=== PATIENT | male | born 1960 | race Caucasian/White ===

== ENCOUNTER 2018-05-02 13:08 | Emergency (ER) | payer OTHER ==
[~2018-05-02] VITALS: Ht 172.7 cm; Wt 91.7 kg
[2018-05-02] MEDS ORDERED: ACETAMINOPHEN 500 MG TABLET PO ONE (14:00)
--- NOTE | 2018-05-02 14:25 | PHYS DOC ---
Past History Past Medical History: Depression, Diabetes, High Cholesterol, Hypertension Past Surgical History: Other Smoking: Non-smoker Alcohol Use: None Drug Use: None Adult General Chief Complaint Chief Complaint: BACK PAIN OR INJURY HPI HPI Patient is a 57 year old male who presents with complaining of back pain. Patient states he was lifting a recliner chair at work to put it in a dump truck and suddenly felt pain in his upper back while he had the chair above of his head. Patient complaining of constant pain in upper back that getting worse with turning his back without radiation of pain, focal neuro deficit, fever and chills, chest pain and shortness of breath. Patient rated his pain 8/10. Review of Systems Review of Systems Constitutional: Denies fever or chills [] Eyes: Denies change in visual acuity, redness, or eye pain [] HENT: Denies nasal congestion or sore throat [] Respiratory: Denies cough or shortness of breath [] Cardiovascular: No additional information not addressed in HPI [] GI: Denies abdominal pain, nausea, vomiting, bloody stools or diarrhea [] : Denies dysuria or hematuria [] Musculoskeletal: Reports back pain, denies joint pain Integument: Denies rash or skin lesions [] Neurologic: Denies headache, focal weakness or sensory changes [] Endocrine: Denies polyuria or polydipsia [] All other systems were reviewed and found to be within normal limits, except as documented in this note. Current Medications Current Medications Current Medications Medications (Trade) Dose Ordered Sig/[facility] Start Time Stop Time Status Last Admin Dose Admin Acetaminophen (Tylenol) 1,000 mg 1X ONCE 05/02/18 14:00 05/02/18 14:01 DC 05/02/18 14:02 1,000 MG Allergies Allergies Allergies Coded Allergies Type Severity Reaction Last Updated Verified No Known Drug Allergies 05/02/18 No Physical Exam Physical Exam Constitutional: Well developed, well nourished, mild distress, non-toxic appearance. [] HENT: Normocephalic, atraumatic Eyes: PERRLA, EOMI, conjunctiva normal, no discharge. [] Neck: Normal range of motion, no tenderness, supple, no stridor. [] Cardiovascular:Heart rate regular rhythm, no murmur [] Lungs & Thorax: Bilateral breath sounds clear to auscultation [] Abdomen: Bowel sounds normal, soft, no tenderness, no masses, no pulsatile masses. [] Skin: Warm, dry, no erythema, no rash. [] Back: No sign of injury or midline tenderness, painful range of motion of bilateral thoracic area, No tenderness, no CVA tenderness. [] Extremities: No tenderness, no cyanosis, no clubbing, ROM intact, no edema. [] Neurologic: Alert and oriented X 3, normal motor function, normal sensory function, no focal deficits noted. [] Psychologic: Affect normal, judgement normal, mood normal. [] Current Patient Data Vital Signs Vital Signs Date Time Temp Pulse Resp B/P (MAP) Pulse Ox O2 Delivery O2 Flow Rate FiO2 05/02/18 13:10 97.9 76 20 97 Room Air EKG EKG [] Radiology/Procedures Radiology/Procedures [address] [address] IMAGING REPORT Signed PATIENT: MIHAELA BROOKS ACCOUNT: [id number] : 1960 LOCATION: ER AGE: 57 SEX: M EXAM STATUS: REG ER ORD. PHYSICIAN: JUAN ANTONIO PHILLIPS MD REASON: injury PROCEDURE: THORACOLUMBAR 2V Examination: 2 views of the thoracic lumbar spine HISTORY: History of lifting chair or head, pain in the lower thoracic, upper lumbar region COMPARISON: None available FINDINGS: The visualized thoracal lumbar vertebral body heights are maintained. No evidence of listhesis identified. Mild intervertebral disc height loss identified throughout the thoracal lumbar spine likely degeneration IMPRESSION: 1. No acute osseous findings Electronically signed by: Ricardo Carias MD (05/02/2018 2:27 PM) [place] [id number] DICTATED AND SIGNED BY: RICARDO CARIAS MD DATE: 05/02/18 1810 CC: JUAN ANTONIO PHILLIPS MD; DEMETRIA PEREZ ~ Course & Med Decision Making Course & Med Decision Making Pertinent Imaging studies reviewed. (See chart for details) evaluation of patient in ER showed 57-year-old male patient with injury to his back while lifting weights at work. She had painful range of motion of procedures point with unremarkable x-ray . Patient treated with Tylenol in ER and prescription for Tylenol 3 and Flexeril was given and instructed to apply ice on his back. Dragon Disclaimer Dragon Disclaimer This electronic medical record was generated, in whole or in part, using a voice recognition dictation system. Departure Departure: Impression: Primary Impression: Acute thoracic myofascial strain Disposition: HOME, SELF-CARE (at 1436) Condition: IMPROVED Referrals: DEMETRIA PEREZ (PCP) Patient Instructions: Thoracic Strain Additional Instructions: Apply ice on the affected area Drink plenty of liquids Follow-up with your primary care physician in 3-5 days Return to ER if not getting better Scripts Cyclobenzaprine Hcl (CYCLOBENZAPRINE HCL) 10 Mg Tablet 1 TAB PO TID for pain, #30 TAB Prov: JUAN ANTONIO PHILLIPS MD 05/02/18 Acetaminophen With Codeine (TYLENOL WITH CODEINE #3 TABLET) 1 Each Tablet 1 TAB PO Q6HRS for pain, #20 TAB Prov: JUAN ANTONIO PHILLIPS MD 05/02/18 JUAN ANTONIO PHILLIPS MD May 02, 2018 14:25
--- NOTE | 2018-05-02 14:31 | RAD ---
Examination: 2 views of the thoracic lumbar spine HISTORY: History of lifting chair or head, pain in the lower thoracic, upper lumbar region COMPARISON: None available FINDINGS: The visualized thoracal lumbar vertebral body heights are maintained. No evidence of listhesis identified. Mild intervertebral disc height loss identified throughout the thoracal lumbar spine likely degeneration IMPRESSION: 1. No acute osseous findings Electronically signed by: Ricardo Carias MD (05/02/2018 2:27 PM) [id number]
[2018-05-02] MEDS ORDERED: ACET-704 PO (14:38)
[2018-05-02] MEDS ORDERED: CYCL-331 PO (14:38)
[2018-05-02 14:46] VITALS: BP 137/87
== END 2018-05-02 14:47 | disposition home or self-care (01) ==
LOC: ER 13:08
DX: S29.012A Strain of muscle and tendon of back wall of thorax, initial encounter (principal); F32.9 Major depressive disorder, single episode, unspecified; E11.9 Type 2 diabetes mellitus without complications; E78.00 Pure hypercholesterolemia, unspecified; I10 Essential (primary) hypertension; X50.0XXA Overexertion from strenuous movement or load, initial encounter; Y93.89 Activity, other specified; Y92.89 Other specified places as the place of occurrence of the external cause; Y99.8 Other external cause status
CPT/HCPCS: 72080; 99283